=== PATIENT | male | born 1990 | race Two or more races ===

== ENCOUNTER 2017-11-30 23:52 | Emergency (ER) | payer MEDICAID, OTHER ==
[~2017-11-30 23:52] MED LIST: PANT40TA4 PO
--- NOTE | 2017-12-01 00:15 | NUR ---
CALLED PT NAME X3. NO REPSONSE IN WR.
--- NOTE | 2017-12-01 00:42 | NUR ---
CALLED PT NAME X3. NO REPONSE IN WR.
--- NOTE | 2017-12-01 01:14 | NUR ---
CALLED PT NAME X3. NO REPSONSE IN WR.
--- NOTE | 2017-12-01 01:17 | NUR ---
PER ADMITTING STATES PT LEFT.
== END 2017-12-01 01:17 | disposition left against medical advice (07) ==
LOC: ER 12-01 00:09
DX: R05 Cough (principal); Z53.21 Procedure and treatment not carried out due to patient leaving prior to being seen by health care provider